=== PATIENT | female | born 1990 | race Caucasian/White ===

== ENCOUNTER 2024-12-22 01:53 | Emergency (ER) | payer SELFPAY ==
[~2024-12-22] VITALS: Ht 154.9 cm; Wt 54.4 kg
[2024-12-22] MEDS ORDERED: ONDANSETRON 4 MG/2 ML VIAL ONE (02:11)
[2024-12-22] MEDS: ONDANSETRON 4 MG/2 ML VIAL IV ONE (02:14)
[2024-12-22] MEDS: IV NORMAL SALINE 1000 ML BAG IV ONE (02:14)
[2024-12-22 03:13] LABS: BASOPHILS % (AUTO) 0.2 % (0.0-2.0); EOSINOPHILS % (AUTO) 0.2 % (0.0-7.0); HEMATOCRIT 37.2 % (31.2-41.9); HEMOGLOBIN 12.5 g/dL (10.9-14.3); LYMPHOCYTES # (AUTO) 1.1 K/uL (0.8-4.8); LYMPHOCYTES % (AUTO) 13.6 % (20.5-51.5); MEAN CORPUSCULAR HEMOGLOBIN 30.3 uug (24.7-32.8); MEAN CORPUSCULAR HGB CONC 34 g/dL (32.3-35.6); MEAN CORPUSCULAR VOLUME 90.3 fL (75.5-95.3); MONOCYTES # (AUTO) 0.4 K/uL (0.1-1.30); MONOCYTES % (AUTO) 5.4 % (0.0-11.0); NEUTROPHILS # (AUTO) 6.3 K/uL (1.8-8.9); NEUTROPHILS % (AUTO) 80.6 % (38.5-71.5); PLATELET COUNT (AUTO) 193 K/uL (179-408); RED BLOOD CELL COUNT(AUTO) 4.12 MIL/uL (3.63-4.92); RED CELL DISTRIBUTION WIDTH 12.7 % (12.3-17.7); WHITE BLOOD COUNT (AUTO) 7.8 K/uL (3.8-11.8)
[2024-12-22 03:25] LABS: CALCIUM 7.5 mg/dL (8.5-10.1); CARBON DIOXIDE 24 mmol/L (21-32); CHLORIDE 108 mmol/L (98-107); CREATININE 0.5 mg/dL (0.6-1.3); DIFFERENTIAL COMMENT 1; GLUCOSE 93 mg/dL (74-106); POTASSIUM 4.4 mmol/L (3.5-5.1); SODIUM SERUM 141 mmol/L (136-145); UREA NITROGEN, BLOOD 4 mg/dL (7-18)
[2024-12-22 03:31] LABS: ALANINE AMINOTRANSFERASE 31 U/L (14-59); ALBUMIN 2.9 g/dL (3.4-5.0); ALKALINE PHOSPHATASE 78 U/L (50-136); ASPARTATE AMINOTRANSFERASE 16 U/L (15-37); BILIRUBIN,DIRECT 0.1 mg/dL (0.0-0.2); BILIRUBIN,TOTAL 0.5 mg/dL (0.2-1.0)
[2024-12-22 03:48] VITALS: BP 108/66; O2SAT 100
== END 2024-12-22 03:46 | disposition home or self-care (01) ==
LOC: EDBD 02:01 → ER 02:01
DX: R55 Syncope and collapse (principal); R42 Dizziness and giddiness; R10.2 Pelvic and perineal pain; R11.0 Nausea; Z88.8 Allergy status to other drugs, medicaments and biological substances
CPT/HCPCS: 99284; 96374; 96361; 80076; 80048; 85025; 84702; 36415; 93005; J2405; J7040; A4606; A4663